=== PATIENT | female | born 1955 | race Caucasian/White ===

== ENCOUNTER → 2016-06-16 | Outpatient (CLI) | payer OTHER | LOC: RAD 15:07 | DX: Z12.31 Encounter for screening mammogram for malignant neoplasm of breast (principal) ==

== ENCOUNTER → 2017-06-30 | Outpatient (CLI) | payer OTHER | LOC: RAD 03:33 | DX: Z12.31 Encounter for screening mammogram for malignant neoplasm of breast (principal) ==

== ENCOUNTER → 2018-07-01 | Outpatient (CLI) | payer OTHER | LOC: RAD 01:40 | DX: Z12.31 Encounter for screening mammogram for malignant neoplasm of breast (principal); M85.89 Other specified disorders of bone density and structure, multiple sites ==

== ENCOUNTER → 2018-09-02 | Outpatient (CLI) | payer OTHER ==
[~2018-09-02] VITALS: Ht 170.2 cm; Wt 58.1 kg
--- NOTE | 2018-09-04 13:04 | P ---
[facility] [place] [address] PROCEDURE REPORT Name: JASON BALDERRAMA Room #: REG [facility]#: [id number] Admission: 09/02/18 ������������������ Attend Phys: Tani Vergara MD Discharge: ������������������ Date of : 53 Report #: [id number] THIS REPORT FOR: //name// CC: Tani Cole MD OUTPATIENT COLONOSCOPY REPORT BRIEF HISTORY: The patient is a 63-year-old woman with history of a colon adenoma 7 years ago for surveillance colonoscopy. PREOPERATIVE DIAGNOSIS: History of colon polyps. POSTOPERATIVE DIAGNOSIS: Internal hemorrhoids. MEDICATIONS: Deep sedation with propofol per anesthesia. SPECIMEN: None. ESTIMATED BLOOD LOSS: None. PROCEDURE: Colonoscopy to cecum and terminal ileum. FINDINGS: Prior to propofol sedation, procedure of colonoscopy discussed with the patient as well as potential risks and its complications. She indicates she understands and desires to proceed. DESCRIPTION OF PROCEDURE: With the patient in left lateral decubitus position, digital examination was completed, which revealed no abnormalities. Subsequently, the Olympus video colonoscope was introduced in the rectum and advanced under direct vision to the cecum. Done with minimal difficulty. The cecum was identified by the ileocecal valve and the appendiceal orifice. I was able to visualize the distal segment of the terminal ileum, which was inspected and noted to be unremarkable. At that point, scope was slowly withdrawn and careful circumferential views obtained including retroflexion of the scope in the ascending colon. Upon slow withdrawal of the scope, the prep was noted to be good. The mucosa was within normal limits, normal vascular pattern and normal light reflex. No neoplastic or inflammatory changes were seen anywhere in the colon. As we withdrew the scope, she was noted to have normal colonic mucosa throughout. The scope was withdrawn in the rectum and no abnormalities were seen until we retroflexed and internal hemorrhoids were seen. The scope was withdrawn. The patient tolerated the procedure well. CONDITION OF THE PATIENT UPON DISCHARGE: Following procedure, the patient was drowsy, arousable, conversant and will be discharged home when fully ambulatory. [address] [address] PROCEDURE REPORT Name: JASON BALDERRAMA Room #: REG [facility].#: [id number] Admission: 09/02/18 ������������������ Attend Phys: Tani Vergara MD Discharge: ������������������ Date of : 53 Report #: [id number] INSTRUCTIONS TO THE PATIENT AND FAMILY AT THE TIME OF DISCHARGE: No polyps seen today. She had one small adenoma 7 years ago. We will have her return in 10 years for followup colonoscopy. She will otherwise return to the care of Dr. Suha Cole. ��������������������������������������������� <ELECTRONICALLY SIGNED> ���������������������������������������� By: Tani Vergara MD ��������������������������������������������� 09/04/18 1304 [id number] 24 Tani Vergara MD /nt
== END | disposition home or self-care (01) ==
LOC: GI 06:30
DX: Z12.11 Encounter for screening for malignant neoplasm of colon (principal); Z86.010 Personal history of colon polyps; K64.8 Other hemorrhoids; Z98.890 Other specified postprocedural states; Z79.899 Other long term (current) drug therapy
CPT/HCPCS: 62110; 62900

== ENCOUNTER → 2019-08-08 | Outpatient (CLI) | payer OTHER | LOC: RAD 10:45 | DX: Z12.31 Encounter for screening mammogram for malignant neoplasm of breast (principal) ==

== ENCOUNTER → 2020-08-15 | Outpatient (CLI) | payer OTHER | LOC: RAD 08:02 | PROVIDERS: ATTEND Obstetrics & Gynecology | DX: Z12.31 Encounter for screening mammogram for malignant neoplasm of breast (principal) ==

== ENCOUNTER 2021-01-24 16:49 | Emergency (ER) | payer OTHER ==
[~2021-01-24] VITALS: Ht 172.7 cm; Wt 56.7 kg
[2021-01-24 17:00] VITALS: BP 128/54
== END 2021-01-24 18:28 | disposition home or self-care (01) ==
LOC: ER 16:49
PROVIDERS: Nurse Practitioner Family
DX: Z01.84 Encounter for antibody response examination (principal); Z20.822 Contact with and (suspected) exposure to COVID-19; Z98.890 Other specified postprocedural states

== ENCOUNTER → 2021-05-28 | Outpatient (CLI) | payer OTHER ==
[2021-05-28 15:28] LABS: ABSOLUTE NEUTROPHILS 3.6 thou/uL (1.4-8.2); BASOPHILS 1.1 % (0.0-2.0); EOSINOPHILS 1.5 % (0.0-3.0); HEMATOCRIT 39.8 % (37.0-47.0); HEMOGLOBIN 13.4 gm/dL (12.0-15.0); LYMPHOCYTES 32.5 % (24.0-44.0); MCH 31.7 pg (26.0-34.0); MCHC 33.6 g/dL (28.0-37.0); MCV 94.2 fL (80.0-100.0); MONOCYTES 6.3 % (1.0-8.0); PLATELET COUNT 207 thou/uL (150-400); POLYS 58.6 % (36.0-66.0); RBC 4.23 mil/uL (4.20-5.00); RDW 12.1 % (10.5-14.5); WBC 6.1 thou/uL (4.0-11.0)
[2021-05-28 16:54] LABS: ANION GAP 12 mmol/L (7-16); BUN 14 mg/dL (7-18); CALCIUM 8.9 mg/dL (8.5-10.1); CHLORIDE 106 mmol/L (98-107); CHOLESTEROL 189 mg/dL (<200); CO2 25 mmol/L (21-32); CREATININE 0.6 mg/dL (0.6-1.0); GLUCOSE 100 mg/dL (74-106); HDL CHOLESTEROL 77 mg/dL (>40); LDL CHOLESTEROL 101 mg/dL (<100); POTASSIUM 4.2 mmol/L (3.5-5.1); SGOT 25 U/L (15-37); SGPT 22 U/L (30-65); SODIUM 143 mmol/L (136-145); TC:HDL 2.5 Ratio (Not establshd); TOTAL BILIRUBIN 0.3 mg/dL (0.2-1.0); TOTAL PROTEIN 7.1 g/dL (6.4-8.2); TRIGLYCERIDE 58 mg/dL (<150); VLDL 12 mg/dL (<40)
== END ==
LOC: LAB 14:51
PROVIDERS: ATTEND Internal Medicine
DX: R53.83 Other fatigue (principal); E78.5 Hyperlipidemia, unspecified; E55.9 Vitamin D deficiency, unspecified; Z83.49 Family history of other endocrine, nutritional and metabolic diseases

== ENCOUNTER → 2021-07-11 | Outpatient (CLI) | payer OTHER ==
[2021-07-11 14:56] LABS: CREATININE 0.7 mg/dL (0.6-1.0)
== END ==
LOC: CAT 13:59
PROVIDERS: ATTEND Surgery
DX: K40.90 Unilateral inguinal hernia, without obstruction or gangrene, not specified as recurrent (principal); M47.816 Spondylosis without myelopathy or radiculopathy, lumbar region